=== PATIENT | male | born 1945 | race Asian ===

== ENCOUNTER → 2016-12-23 | Outpatient (CLI) | payer MEDICARE ==
[~2016-12-23] MED LIST: FISH OIL 1,0001 CA2 PO; PRAVACHOL20 MG PO
--- NOTE | ~2016-12-23 | CR63 ---
[facility] A Service of [facility] RADIOLOGY TEXT RESULTS PATIENT: FERNANDO COLE V LOCATION: [facility] : 43 UNIT #: [id number] AGE: [address]: Zita Cole MD SEX: M ORDER DR: [id number] [facility] [address] [place], [place] [address] [id number] O MR#: [id number] Acc #: [id number] NAME: FERNANDO COLE : 1945 SEX: M STUDY DATE/TIME: 12/23/2016 1032 UNIT: [facility] ROOM: STUDY DESCRIPTION: CR Chest 2 View Attending Physician: Zita Cole M.D. Referring Physician: Zita Cole M.D. Ordering Physician: Zita Cole M.D. Primary Care Physician: Zita Cole M.D. MEDICAL IMAGING REPORT This report is preliminary unless electronic signature is present EXAM Chest 2 views 12/23/2016 1032 hours HISTORY 71-year-old man with 3-month history of persistent cough. Former smoker. COMPARISON 04/05/2013 FINDINGS Upright PA and lateral views of the chest demonstrate normal heart size with a stable tortuous aorta. The lungs are hyperinflated with underlying calcified granulomata which are stable. There is no acute pulmonary density or pleural effusion. IMPRESSION Emphysematous and benign calcified granulomatous changes similar to 04/05/2013. There are no acute cardiopulmonary findings. Dictated by... Leora Hill M.D. THIS IS AN ELECTRONICALLY VERIFIED REPORT Leora Hill M.D. at 12/24/2016 9:38 AM Dmitry TD: 12/23/2016 16:11 JOB #: [id number] MEDICAL IMAGING REPORT Page 1 of 1 COPY
== END | disposition home or self-care (01) ==
LOC: CRAD 10:17
DX: R05 Cough (principal)
CPT/HCPCS: 71020